=== PATIENT | female | born 1985 | race Caucasian/White ===

== ENCOUNTER 2022-03-20 01:45 | Emergency (ER) | payer OTHER ==
[~2022-03-20] VITALS: Ht 167.6 cm; Wt 77.6 kg
[2022-03-20 02:12] LABS: HEMATOCRIT 36.7 % (37.0-47.0); MEAN CELL VOLUME 88.4 fl (81.0-99.0); MEAN CORPUSCULAR HGB 28.4 pg (27.0-31.0); MEAN CORPUSCULAR HGB CONC 32.2 g/dl (33.0-37.0); MEAN PLATELET VOLUME 11.3 fl (9.6-12.3); PLATELET COUNT AUTOMATED 299 10*3/uL (130-400); RED BLOOD COUNT 4.15 10*6/uL (4.10-5.10); RED CELL DISTRI WIDTH 14.5 % (0-14.5); WHITE BLOOD COUNT 9.2 10*3/uL (4.8-10.8)
[2022-03-20] MEDS ORDERED: GABAPENTIN800 MG PO (02:13)
[2022-03-20] MEDS ORDERED: IBUPROFEN600 MG PO (02:13)
[2022-03-20] MEDS ORDERED: OXYCODONE HCL10 M1 PO (02:13)
[2022-03-20 02:14] LABS: MANUAL DIFF REFLEX YES
[2022-03-20] MEDS ORDERED: SERTRALINE HYD100 MG PO (02:14)
[2022-03-20 02:24] LABS: ACT PARTIAL THROMBO TIME 25.8 SECONDS (20.0-32.1); INTERNATIONAL NORM RATIO 0.9 (2.0-3.5)
[2022-03-20 02:29] LABS: ALKALINE PHOSPHATASE 128 U/L (46-116); BUN 5 mg/dl (9-23); CHLORIDE 105 mmol/L (98-107); CREATININE 0.62 mg/dL (0.55-1.02); POTASSIUM 4.3 mmol/L (3.4-5.1); SODIUM 137 mmol/L (136-145); TOTAL PROTEIN 6.8 gm/dL (6.0-8.0)
[2022-03-20 02:34] LABS: ATYPICAL LYMPHS 2 % (0-0); BASOPHILS 1 % (0-1); TOTAL CELLS COUNTED 100 #CELLS
[2022-03-20 02:35] LABS: PLATELET SUFFICIENCY NORMAL (NORMAL)
[2022-03-20 03:10] LABS: SGPT/ALT 15 U/L (10-49)
[2022-03-20 06:36] LABS: URINE AMPHETAMINES Positive (1000ng/ml); URINE BARBITURATES Negative (200ng/ml); URINE BENZODIAZEPINES Negative (200ng/ml); URINE CANNABINOIDS (THC) Positive (50ng/ml); URINE COCAINE Negative (300ng/ml); URINE METHADONE Negative (300ng/ml); URINE OPIATES Negative (300ng/ml); URINE PHENCYCLIDINE Negative (25ng/ml)
== END 2022-03-20 08:05 | disposition home or self-care (01) ==
LOC: ED 01:45
PROVIDERS: Internal Medicine
DX: F15.90 Other stimulant use, unspecified, uncomplicated (principal)